=== PATIENT | female | born 1950 | race Caucasian/White ===

== ENCOUNTER → 2017-01-29 | Outpatient (CLI) | payer OTHER ==
--- NOTE | ~2017-01-29 | US77 ---
[facility] A Service of [facility] RADIOLOGY TEXT RESULTS PATIENT: WOODY NOVAK LOCATION: [facility] : 46 UNIT #: [id number] AGE: [address]: Junior Corbett MD SEX: F ORDER DR: [id number] [facility] [address]. [place], [place] [address] [id number] O MR#: [id number] Acc #: [id number] NAME: WOODY NOVAK : 1950 SEX: F STUDY DATE/TIME: 01/29/2017 12:21 UNIT: [facility] ROOM: STUDY DESCRIPTION: US Kidney Bilateral Complete Attending Physician: Junior Corbett M.D. Referring Physician: Junior Corbett M.D. Ordering Physician: Junior Corbett M.D. Primary Care Physician: Vani Torres A.P.R.N. MEDICAL IMAGING REPORT This report is preliminary unless electronic signature is present EXAM Renal ultrasound. INDICATIONS Renal insufficiency. BUN 18, creatinine 1.19, GFR 47. PROCEDURE James-scale and Doppler imaging of the kidneys and bladder. COMPARISON CT from 06/24/04. FINDINGS The right kidney measures 7.7 cm. There is some dilation of the right renal pelvis and calyces. Left kidney measures 8.8 cm. Unremarkable bladder. IMPRESSION Dilation of the right renal pelvis and calyces. It had a fairly similar appearance on the previous CT and may simply represent a prominent extrarenal pelvis. No renal mass. Kidneys show normal cortical thickness. Dictated by... Naveed High M.D. THIS IS AN ELECTRONICALLY VERIFIED REPORT Naveed High M.D. at 01/30/2017 7:02 AM CHELY/fahad TD: 01/29/2017 19:48 JOB #: [id number] [facility] A Service of [facility] RADIOLOGY TEXT RESULTS PATIENT: WOODY NOVAK LOCATION: [facility] : 46 UNIT #: [id number] AGE: [address]: Junior Corbett MD SEX: F ORDER DR: MEDICAL IMAGING REPORT Page 1 of 1 COPY
== END | disposition home or self-care (01) ==
LOC: CWCC 11:55
DX: R79.89 Other specified abnormal findings of blood chemistry (principal); N28.89 Other specified disorders of kidney and ureter
CPT/HCPCS: 76770